=== PATIENT | female | born 1955 | race Caucasian/White ===

== ENCOUNTER 2017-06-28 15:57 | Emergency (ER) | payer OTHER ==
[~2017-06-28] VITALS: Ht 154.9 cm; Wt 81.6 kg
[2017-06-28 16:27] VITALS: BP 183/76
[2017-06-28 17:26] LABS: ABSOLUTE BASOPHIL COUNT 0.1 /CUMM (0.0-0.2); ABSOLUTE EOSINOPHIL COUNT 0.1 /CUMM (0.0-0.7); ABSOLUTE GRANULOCYTE CT 10.1 /CUMM (1.4-6.5); ABSOLUTE LYMPH COUNT 2.1 /CUMM (1.2-3.4); ABSOLUTE MONOCYTE COUNT 0.4 /CUMM (0.10-0.60); BASOPHIL % 0.5 % (0.0-2.0); EOSINOPHIL % 0.6 % (0-5); GRANULOCYTE % 79.4 % (42.2-75.2); MEAN CORPUSCULAR HGB 28.1 PG (27.0-31.0); MEAN CORPUSCULAR VOLUME 87.9 FL (81.0-99.0); MEAN PLATELET VOLUME 7.1 FL (7.4-10.4); PLATELET COUNT 231 /CUMM (130-400); RBC DISTRIBUTION WIDTH 14.1 % (11.5-14.5); RED BLOOD CELL CT 5.11 /CUMM (4.20-5.40); WHITE BLOOD CELL COUNT 12.7 /CUMM (4.8-10.8)
--- NOTE | 2017-06-28 20:14 | ED HAND/WRIST INJURY COMPLAINT ---
History of Present Illness General Chief Complaint: Skin Rash/ Abcess Stated Complaint: ABSESS ON WRIST Source: patient, old records Exam Limitations: no limitations Vital Signs & Intake/Output Vital Signs & Intake/Output Vital Signs Date Time Temp Pulse Resp B/P B/P Pulse O2 O2 Flow FiO2 Mean Ox Delivery Rate 06/28 1633 98.2 06/28 1627 98.2 76 17 183/76 98 Room Air Room Air ED Intake and Output 06/29 0000 06/28 1200 Intake Total Output Total Balance Patient 180 lb Weight Allergies Coded Allergies: No Known Allergies (06/28/17) Reconcile Medications Cephalexin (Keflex) 500 MG CAPSULE 1 CAP PO TID cellulitis Ibuprofen 800 MG TABLET 1 TAB PO TID pain Sulfamethoxazole/Trimethoprim (Bactrim Ds Tablet) 800 MG-160 MG TABLET 1 TAB PO BID abscess Triage Note: PT TO TRIAGE WITH INFECTION TO LEFT HAND AFTER INJECTING COCAINE AND HEROIN 3 DAYS PRIOR. HAND RED, HOT SWOLLEN AND PAINFUL, DENIES FEVERS Triage Nurses Notes Reviewed? yes Occurred: last week Duration: day(s): (3), constant Timing: recent history Injury Environment: home Severity: moderate, severe Severity Numbers: 7 Pain/Injury Location: Left: Wrist. No Modifying Factors: none Associated Symptoms: redness HPI: 61-year-old female history of hypertension heroin cocaine abuse presents to the ER for evaluation saying she has an infection to her left wrist that began 3 days ago after she injected heroin at the site. She states she has a history of similar infections in the past and has drained the abscess is by herself. She is [id number] she denies fevers or chills. She denies any redness streaking up her forearm. She denies any drug use today She has not sought care for the symptoms until today secondary to the swelling and pain at the site of the abscess. She denies any difficulty with range of motion of her wrist hand or fingers no numbness or tingling. pt denies possiblity of fb (Shreyas Melissa) Past History Travel History Traveled to [place] past 21 day No Medical History Any Pertinent Medical History? 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 No (Shreyas Melissa) Review of Systems Review of Systems Constitutional: Reports: see HPI. Comments Review of systems: See HPI, All other systems negative. Constitutional, no chills no fever, HEENT: no sore throat no congestion, Cardiovascular: No chest pain Skin: no rashes, no change in skin Respiratory: No dyspnea no cough no sputum GI: No nausea no vomiting, no diarrhea Muscle skeletal: No joint pain, no back pain, no neck pain, Neurologic: , no headache Heme/endocrine: No bruising (Shreyas Melissa) Physical Exam Physical Exam General Appearance: well developed/nourished, alert, awake Hand Left: swelling Hand Right: normal inspection, normal range of motion Comments: Well-developed well-nourished patient in no apparent distress. HEENT: Atraumatic, extraocular motion intact Neck: Supple, FROM Back: FROM Respiratory:. No respiratory distress. Patient speaking in full complete sentences. Breath sounds clear to auscultation bilaterally: NO W/R/R Shoulder: Atraumatic/Stable. FROM . Elbow: Atraumatic/stable. FROM. No laxity Upper arm/Forearm: Atraumatic. Nontender. No edema, 5 out of 5 rink rat strength noted to bilateral upper extremities Hand/Wrist: There is a 2 cm abscess with surrounding erythema and induration fluctuance noted to the volar left wrist radial aspect, no discharge is elicited on palpation, there is no streaking up the forearm, there is no hand swelling, stable. Skin intact. FROM Pulses: Normal/equal radial pulses bilaterally. Brisk cap refill Neuro: awake, alert, and oriented to person, place and time. There were no obvious focal neurologic abnormalities. Skin: Warm & dry;No appreciable rash on exposed skin Psych: Mood affect normal, normal memory normal judgment. (Shreyas Melissa) Progress Differential Diagnosis: abscess, cellulitis, fracture, septic arthritis, sprain, tenosynovitis, embedded fb Plan of Care: Orders Procedure Date/time Status BLOOD CULTURE 06/28 1632 Active COMPREHENSIVE METABOLIC PANEL 06/28 1632 Complete CBC WITHOUT DIFFERENTIAL 06/28 1632 Complete Laboratory Tests 06/28/17 193: Lactic Acid Cancelled 06/28/17 171: Anion Gap 11, Estimated GFR > 60, BUN/Creatinine Ratio 20.0, Glucose 120 H, Calcium 9.6, Total Bilirubin 0.6, AST 14, ALT 23, Alkaline Phosphatase 45, Total Protein 8.1, Albumin 4.1, Globulin 4.0, Albumin/Globulin Ratio 1.0 L, CBC w Diff NO MAN DIFF REQ, RBC 5.11, MCV 87.9, MCH 28.1, MCHC 32.0 L, RDW 14.1, MPV 7.1 L, Gran % 79.4 H, Lymphocytes % 16.2 L, Monocytes % 3.3, Eosinophils % 0.6, Basophils % 0.5, Absolute Granulocytes 10.1 H, Absolute Lymphocytes 2.1, Absolute Monocytes 0.4, Absolute Eosinophils 0.1, Absolute Basophils 0.1 Microbiology 06/28 171 BLOOD: Blood Culture - RECD 06/29 1631 BLOOD: Blood Culture - CAN Cancelled: NO SPECIMEN RECEIVED, PATIENT DEPARTED ER Patient is refusing incision and drainage at this time I discussed with her the harms of not having this done and the benefits. She states that the pain is too much I discussed with her that we would anesthetize the region first. Despite my recommendation the patient is refusing at this time. We will treat her with Keflex and Bactrim, also prescribe ibuprofen. She will return for follow-up evaluation with myself on Monday in 2 days. Return precautions at anytime sooner were discussed with her apparently. I discussed with her that she will most likely require incision and drainage at that time which she understands (Gigi CHILDERS,Shreyas) Departure Departure Time of Disposition: 2017 Disposition: HOME OR SELF CARE Condition: Stable Clinical Impression Primary Impression: Abscess Secondary Impressions: Cellulitis Referrals: Patient Has No Primary Care Dr (PCP/Family) Additional Instructions: keflex and bactrim as directed. ibuprofen for pain. please return in 2-3 days for wound check. return sooner if, as discussed you have redness streaking up your arm, worsening pain, develop fever, chills or any other concerns Departure Forms: Customer Survey General Discharge Information Prescriptions: Current Visit Scripts Cephalexin (Keflex) 1 CAP PO TID #21 CAP Sulfamethoxazole/Trimethoprim (Bactrim Ds Tablet) 1 TAB PO BID #20 TAB Ibuprofen 1 TAB PO TID #30 TAB (Shreyas Melissa) PA/PRODUCT MGR Co-Sign Statement Statement: ED Attending supervision documentation- [] I saw and evaluated the patient. I have also reviewed all the pertinent lab results and diagnostic results. I agree with the findings and the plan of care as documented in the PA's/PRODUCT MGR's documentation. [X] I have reviewed the ED Record and agree with the PA's/PRODUCT MGR's documentation. [] Additions or exceptions (if any) to the PAs/PRODUCT MGR's note and plan are summarized below: [] (Devyn FLORES,Tano Plunkett)
[2017-06-28] MEDS ORDERED: IBUPROFEN800 M1 PO (20:20)
[2017-06-28] MEDS ORDERED: BACTRIM DS TAB1 EACH PO (20:20)
[2017-06-28] MEDS ORDERED: KEFLEX500 M1 PO (20:20)
== END 2017-06-28 20:27 ==
LOC: ERH 15:57
PROVIDERS: Physician Assistant
DX: L02.413 Cutaneous abscess of right upper limb (principal)
CPT/HCPCS: 87040